=== PATIENT | female | born 1990 | race Caucasian/White ===

== ENCOUNTER 2018-12-10 22:11 | Emergency (ER) | payer SELFPAY ==
[~2018-12-10] VITALS: Ht 170.2 cm; Wt 70.3 kg
[2018-12-10 22:14] VITALS: BP 132/68
--- NOTE | 2018-12-10 22:28 | NUR ---
SITTING AT THE EDGE OF THE BED IN STABLE CONDITION. DENIED ANY PAIN OR DISCOMFORT. PER ANASTASIIA QUIROGA PT CAN BE D/C HOME ONCE SOMEONE CAN PICK HER UP SAFELY.
--- NOTE | 2018-12-10 23:15 | NUR ---
pt was picked up by a friend in stable condition
== END 2018-12-10 23:17 | disposition home or self-care (01) ==
LOC: ER 22:13
DX: F10.129 Alcohol abuse with intoxication, unspecified (principal); Y90.9 Presence of alcohol in blood, level not specified